=== PATIENT | female | born 1955 | race Caucasian/White ===

== ENCOUNTER 2018-06-23 09:50 | Outpatient (CLI) | payer OTHER ==
--- NOTE | 2018-06-23 13:10 | XRAY Report ---
Reason: CERVICAL DISORDER W/RADICULOPATHY/SCREENING FOR OS Procedure Date: 06/23/2018 Accession Number: [id number] / [id number] Procedure: XR - Cervical Spine 2 View CPT Code: FULL RESULT: EXAM: CERVICAL SPINE RADIOGRAPHY EXAM DATE: 06/23/2018 10:53 AM. CLINICAL HISTORY: Cervical disorder with radiculopathy/screening for osteoarthrosis. COMPARISONS: None. TECHNIQUE: 3 views. FINDINGS: Alignment: Normal. No spondylolisthesis or scoliosis. Bones: The cervical vertebral bodies and posterior elements are well visualized from the skull base through C6-C7. No fractures or bone lesions. Disks: Mild multilevel degenerative disk disease, which is most pronounced at C6-C7. Facets: Mild multilevel facet sclerosis. Soft Tissues: Normal. No prevertebral soft tissue swelling. The visualized lung apices are clear. IMPRESSION: Mild degenerative changes. RADIA
== END 2018-06-23 09:51 | disposition home or self-care (01) ==
LOC: DI 09:50
PROVIDERS: ATTEND Internal Medicine
DX: M50.31 Other cervical disc degeneration, high cervical region (principal); M47.9 Spondylosis, unspecified
CPT/HCPCS: 72040

== ENCOUNTER 2018-07-26 14:30 | Outpatient (CLI) | payer OTHER ==
--- NOTE | 2018-07-28 09:17 | Mammography Report ---
Reason: SCREENING MAMMO Procedure Date: 07/26/2018 Accession Number: [id number] / [id number] Procedure: CHRYSTAL - Screening Mammo w/Shane CPT Code: FULL RESULT: EXAM: Screening Mammo w/Shane DATE: 07/26/2018 3:51 PM CLINICAL HISTORY: Screening encounter. History of nulliparity. TECHNIQUE: (B) - Bilateral CC, laterally exaggerated CC, MLO views were obtained. COMPARISON: None PARENCHYMAL PATTERN: (D) - The breast(s) demonstrate(s) heterogeneously dense fibroglandular parenchyma. FINDINGS: Asymmetrically prominent focal asymmetry in the left axillary tail demonstrates a fine appearing grouping of calcifications, 3-D MLO image 16, 8.9 cm from the nipple. This finding requires additional spot magnification views as well as possibly ultrasound for clarification. A scar is noted on the right breast. There are no suspicious masses, calcifications, or areas of distortion in the right breast. IMPRESSION: Incomplete examination. BI-RADS category 0. RECOMMENDATION: (ADDMU) - Additional views using both Mammography and Ultrasound recommended. Left breast spot magnification views and possibly ultrasound. BI-RADS CATEGORY: (0) - Incomplete Examination - need additional evaluation. STANDARD QUALIFYING STATEMENTS: 1. This examination was not reviewed with the aid of Computer-Aided Detection (CAD). 2. A negative or benign imaging report should not preclude biopsy if clinically suspicious findings are present. 3. Dense breasts may obscure an underlying neoplasm. 4. This examination was reviewed with the aid of 3D breast imaging (tomosynthesis).
== END 2018-07-26 23:59 | disposition home or self-care (01) ==
LOC: DI 14:30
PROVIDERS: ATTEND Internal Medicine
DX: Z12.31 Encounter for screening mammogram for malignant neoplasm of breast (principal); R92.1 Mammographic calcification found on diagnostic imaging of breast
CPT/HCPCS: 77063; 77067

== ENCOUNTER 2018-07-26 14:44 | Outpatient (CLI) | payer OTHER ==
--- NOTE | 2018-07-27 08:09 | DEXA Report ---
Reason: SCREENING FOR OSTEOPOROSIS Procedure Date: 07/26/2018 Accession Number: [id number] / [id number] Procedure: DEX - Dexa Spine and/or Hip CPT Code: FULL RESULT: EXAM: Dexa Spine and/or Hip DATE: 07/26/2018 3:26 PM CLINICAL HISTORY: SCREENING FOR OSTEOPOROSIS TECHNIQUE: Dual energy x-ray absorptiometry (DXA) was performed on a silkfred System. Regions measured are the AP Spine, femoral neck, and if needed forearm. COMPARISON: None. In accordance with the International Society for Clinical Densitometry (ISCD) guidelines, data from previous exams may be reanalyzed using current recommendations and techniques. This is done to allow a more accurate basis for comparison with the current study. FINDINGS: The data for the lumbar spine is as follows: BMD (g/cm/cm) T-SCORE Z-SCORE REGION L1 0.890 -2.0 -0.6 L2 0.915 -2.4 -0.9 L3 1.092 -0.9 0.5 L4 1.021 -1.5 -0.1 TOTAL 0.985 -1.6 -0.2 NOTE: All evaluable vertebrae are used for classification The data for the hip is as follows: BMD (g/cm/cm) T-SCORE Z-SCORE REGION Neck 0.900 -1.0 0.4 TOTAL 0.940 -0.5 0.6 NOTE: The femoral neck or total proximal femur, whichever is lowest, is used for classification. IMPRESSION: THE WHO CLASSIFICATION BASED ON THE INTERNATIONAL REFERENCE STANDARD IS OSTEOPENIA. THE FRACTURE RISK IS INCREASED. RECOMMENDATION: Patients with diagnosis of osteoporosis or osteopenia should have regular bone mineral density assessment. For those eligible for Medicare, routine testing is allowed once every 2 years. Testing frequency can be increased for patients who have rapidly progressing disease or for those who are receiving medical therapy to restore bone mass. COMMENT: World Health Organization (WHO) definitions for osteoporosis and osteopenia: NORMAL BMD: T-score at -1.0 or higher, fracture risk is low OSTEOPENIA BMD: T-score between -1.0 and -2.5, fracture risk is increased. OSTEOPOROSIS BMD: T-score at -2.5 or lower, fracture risk is high. National Osteoporosis Foundation recommends: 1. Obtain adequate dietary calcium (at least 1200 mg per day) and vitamin D (400-800 international units per day). 2. Participate, as appropriate, in regular weightbearing and muscle-strengthening exercise. 3. Avoid tobacco use and reduce alcohol and caffeine intake. 4. For more detailed information see the website at www.NOF.org.
== END 2018-07-26 14:45 | disposition home or self-care (01) ==
LOC: DI 14:44
PROVIDERS: ATTEND Internal Medicine
DX: Z13.820 Encounter for screening for osteoporosis (principal); M85.89 Other specified disorders of bone density and structure, multiple sites
CPT/HCPCS: 77080

== ENCOUNTER 2018-08-08 09:45 | Outpatient (CLI) | payer OTHER ==
--- NOTE | 2018-08-08 13:48 | Mammography Report ---
Reason: ABNORMAL MAMMOGRAM Procedure Date: 08/08/2018 Accession Number: [id number] / [id number] Procedure: CHRYSTAL - Diag Special Views Dig LT CPT Code: FULL RESULT: EXAM: Diag Special Views Dig LT DATE: 08/08/2018 9:58 AM CLINICAL HISTORY: Diagnostic mammogram. The patient is recalled from screening for a focal asymmetry in the left axillary tail with suspicion of calcifications. TECHNIQUE: (L) - Left left MLO, spot magnified ML and magnified CC images are obtained. COMPARISON: 07/26/2018. PARENCHYMAL PATTERN: (D) - The breast(s) demonstrate(s) heterogeneously dense fibroglandular parenchyma. FINDINGS: The prominent tissue in the axillary tail shows no suspicious calcification on spot magnification views. There are no suspicious masses, calcifications, or areas of distortion. IMPRESSION: Negative examination. BI-RADS category 1. RECOMMENDATION: (ANNUAL) - Recommend routine annual screening mammography. BI-RADS CATEGORY: (1) - Negative. STANDARD QUALIFYING STATEMENTS: 1. This examination was not reviewed with the aid of Computer-Aided Detection (CAD). 2. A negative or benign imaging report should not preclude biopsy if clinically suspicious findings are present. 3. Dense breasts may obscure an underlying neoplasm. 4. This examination was reviewed with the aid of 3D breast imaging (tomosynthesis).
== END 2018-08-08 09:46 | disposition home or self-care (01) ==
LOC: DI 09:45
PROVIDERS: ATTEND Internal Medicine
DX: R92.8 Other abnormal and inconclusive findings on diagnostic imaging of breast (principal)

== ENCOUNTER 2018-08-17 10:52 | Outpatient (CLI) | payer OTHER ==
--- NOTE | 2018-08-17 15:41 | XRAY Report ---
Reason: RIGHT WRIST PAIN Procedure Date: 08/17/2018 Accession Number: [id number] / [id number] Procedure: XR - Wrist 3 View RT CPT Code: FULL RESULT: EXAM: RIGHT WRIST RADIOGRAPHY EXAM DATE: 08/17/2018 12:19 PM. CLINICAL HISTORY: Right wrist pain. COMPARISON: HAND 3 VIEW RT 08/17/2018 12:37 PM. TECHNIQUE: 3 views. FINDINGS: Bones: No fracture or bone lesion. Joints: No malalignment evident. Joint space loss and small osteophytes developing about the first CMC, STT and hamate-fifth metacarpal joint. There is also mild osteoarthritis at the first MCP joint. Soft Tissues: Normal. No soft tissue swelling. IMPRESSION: 1. Mild osteoarthritis about the wrist similar to prior exam. 2. No fracture or bone lesion. RADIA
--- NOTE | 2018-08-17 15:43 | XRAY Report ---
Reason: PAIN IN RIGHT WRIST, RT HAND Procedure Date: 08/17/2018 Accession Number: [id number] / [id number] Procedure: XR - Hand 3 View RT CPT Code: FULL RESULT: EXAM: RIGHT HAND RADIOGRAPHY EXAM DATE: 08/17/2018 12:19 PM. CLINICAL HISTORY: Right hand and wrist pain. COMPARISON: None. TECHNIQUE: 3 views. FINDINGS: Bones: Normal. No fractures or bone lesions. Joints: No malalignment evident. Mild to moderate osteoarthritis present about the first IP and fifth DIP joints and more mild disease throughout the remainder of the DIP joints, first MCP joint, base of thumb and medial carpal metacarpal joint. Soft Tissues: A radiodense soft tissue focus is present about the dorsal lateral third digit adjacent to the tuft measuring 5 mm. IMPRESSION: 1. 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 2. Calcific density within the dorsal lateral soft tissues adjacent to the third tuft. RADIA
== END 2018-08-17 10:53 | disposition home or self-care (01) ==
LOC: DI 10:52
PROVIDERS: ATTEND Nurse Practitioner Family
DX: M19.031 Primary osteoarthritis, right wrist (principal); M19.041 Primary osteoarthritis, right hand; M18.11 Unilateral primary osteoarthritis of first carpometacarpal joint, right hand

== ENCOUNTER 2018-10-23 10:34 | Outpatient (CLI) | payer OTHER ==
[2018-10-23 11:18] VITALS: BP 106/66
--- NOTE | 2018-10-23 11:18 | CONSULTATION NOTE ---
Information from patient questionnaire entered by Lakesha Goodwin. I have reviewed and concur with the information entered by Lakesha Goodwin. This document represents the service I personally performed and the decisions made by me, Pati Mclean MD, [facility]. - History of Present Illness Chief Complaint: Unrefreshed sleep, Snoring, Observed pauses in breathing, Fatigue The patient tells me that she normally goes to bed around 10:30 pm, and it takes her approximately 10-15 minutes to fall asleep. She has been told that she snores loudly and irregularly at night. She has been observed to stop breathing in her sleep. Her bed partner can still sleep in the same bed but she wears earplugs. She can recall waking up on the average of 3-4 times during the night. Most of the time she wakes up because of using the bathroom, choking, gasping for air and pain. There is not a lot of tossing and turning in her sl eep. Generally she can recall having dreams. She usually wakes up at 9:00 am and does not feel refreshed. She usually does not have a morning headache. During the day she complains of feeling sleepy and fatigued. She has fallen asleep while driving and has gone out of the vicky, no accident. She occasionally naps during the day. If she naps, upon falling asleep during the day she admits to having dreams. She reports having impaired concentration during the day. She reports having sleep paralysis. No symptoms of restless leg syndrome. 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 Patient has Domestic Partner and lives in . Smoked in the past 12 months: No Alcohol use: Yes Amount and frequency: 2 drinks a day Caffeine use: Yes - Family History Family history of sleep disordered breathing: Yes Family Hx Sleep Apnea: Father: Snoring - Review of Systems Weight gain over past 5 years: 5 Psychiatric: reports: Attention Deficit Hyperactivity, depression Ear/Nose/Throat: reports: nasal congestion, injury to nose, tonsillectomy Musculoskeletal: reports: joint pain, neck pain, back pain - Physical Examination Blood Pressure: 106/66 Heart Rate: 67 O2 Saturation: 98 Height: 5 ft 4.25 in Weight (kg): 63.321 kg Body Mass Index: 23.8 BMI Classification: Healthy weight Neck circumference: 12.5 HEENT: No craniofacial malformation Nostrils: patent to airflow Turbinates: normal Septum: deviated right Mouth and throat: narrow oropharynx (Mallampati Class II) Soft palate: long Hard palate: normal Uvula: normal Tongue: normal in size Tonsils: small Chin and jaw: Retrognathia Neck: normal w/o lymphadenopathy or thyromegaly Heart: regular rate and rhythm Lungs: clear bilaterally Abdomen: soft, non-tender Extremities: no edema or clubbing Neurologic: intact, no focal deficits - Impression 1. Suspected Obstructive Sleep Apnea-Hypopnea Syndrome, as suggested by a history of loud and irregular snoring, observed cessation of breath while asleep, gasping or choking in sleep, morning headache, frequent awakening during the night, unrefreshed sleep, cognitive impairment, and excessive daytime sleepiness. Narrow oropharynx is a common predisposing factor for obstructive sleep apnea-hypopnea syndrome. I recommend proceeding to polysomnography to confirm the diagnosis and to assess severity. If the patient has significant sleep disordered breathing, a manual CPAP titration study will also be performed to find the optimal treatment pressure. I informed the patient of what the sleep studies involve and after some discussion, obtained agreement to proceed. The pathophysiology of obstructive sleep apnea-hypopnea syndrome was discussed with the patient and health risks of cardiovascular and cerebrovascular disease if not treated. Risks of drowsy driving discussed in detail and patient advised to avoid long distance driving and to mold puller at the first sign of drowsiness. Patient agreed to plan. - Plan Schedule polysomnography and return in 1-2 weeks after the study to discuss result and initiate therapy. Avoid long distance driving or driving when feeling sleepy. Avoid alcohol, sedative and muscle relaxant around bedtime. Review instructions provided by trained office staff on how to prepare for the sleep study. Return for follow-up after sleep study completed. I spent 100% of this minute visit face to face with the patient with greater than 50% of this was spent time counseling the patient and coordination of care.
== END 2018-10-23 10:35 | disposition home or self-care (01) ==
LOC: SC 10:34
PROVIDERS: ATTEND Internal Medicine Pulmonary Disease
DX: G47.10 Hypersomnia, unspecified (principal); R06.81 Apnea, not elsewhere classified; R06.83 Snoring; R51 Headache; G47.8 Other sleep disorders; R41.89 Other symptoms and signs involving cognitive functions and awareness
CPT/HCPCS: 99203; 99212

== ENCOUNTER 2018-11-05 19:33 | Outpatient (CLI) | payer OTHER | END 2018-11-05 19:34 | disposition home or self-care (01) | LOC: SC 19:33 | PROVIDERS: ATTEND Internal Medicine Pulmonary Disease | DX: G47.33 Obstructive sleep apnea (adult) (pediatric) (principal); G47.61 Periodic limb movement disorder | CPT/HCPCS: 95810 ==

== ENCOUNTER 2018-12-20 11:19 | Outpatient (CLI) | payer OTHER ==
[2018-12-20 12:26] VITALS: BP 100/60
--- NOTE | 2018-12-20 12:26 | SLEEP CARE CONSULTATION ---
Information from patient questionnaire entered by Lakesha Goodwin. I have reviewed and concur with the information entered by Lakesha Goodwin. This document represents the service I personally performed and the decisions made by me, Leigh Soto RN, MSN, DENTAL PRACTITIONER. History of Present Illness Initial Mckinney Sleepiness Scale score: 6 Current Mckinney Sleepiness Scale score: 11 Additional HPI information: NINA BARNHART returns for follow up of the recently performed polysomnography and was informed of the polysomnography findings. I explained the pathophysiology behind obstructive sleep apnea. We then spent quite a bit of time discussing different treatment options. For mild obstructive sleep apnea, surgery and oral appliance are alternatives to nasal CPAP therapy but in moderate or severe cases, nasal CPAP is the most effective and reliable treatment. I reviewed the impact of weight changes on sleep apnea. Patient is at normal weight. After some discussion, the patient opted to consider her treatment options and contact this office in about a month. Patient counseled not drink alcohol less than 4 hours before bedtime as it can increase snoring and apnea. Patient was cautioned about risks of drowsy driving until sleepiness symptoms resolve. Patient denies drowsy driving. [facility] patient education on snoring and sleep apnea given and reviewed Sleep Study - Polysomnography Polysomnography findings: The quality of the study is good. The patient had normal sleep efficiency. The sleep architecture was abnormal for sleep fragmentation and reduced amount of time spent in REM sleep. Respiratory monitoring showed mild obstructive sleep apnea-hypopnea (AHI = 5.1) associated with frequent arousals, oxyhemoglobin desaturation and mild hypoxia (christiano oxygen saturation of 87%). The respiratory events occurred independently of sleep stage and body position (supine AHI = 5.6; non-supine = 4.70). Snore was loud in intensity. There was moderate periodic leg movement of sleep contributing to the sleep fragmentation. Cardiac rhythm was normal sinus rhythm without significant arrhythmia. No abnormal behavior (parasomnia) observed during the night. Allergies and Home Medications Known drug allergies: No Home medication list reviewed: Yes Allergy and home medication list: aspirin 1 tab daily venlafaxine ER 1 tab daily Review of Systems Review of systems same as previous: Yes Physical Exam Blood Pressure: 100/60 Cuff size: regular Heart Rate: 58 O2 Saturation: 98 Height: 5 ft 4.25 in Weight (kg): 136 lb 9.6 oz Body Mass Index: 23.2 BMI Classification: Healthy weight Impression and Plan 1. Obstructive Sleep Apnea-Hypopnea Syndrome, mild , with lowest oxygen saturation of 87%. Possibly this is the cause of the patients symptoms of unrefreshed sleep, and excessive daytime sleepiness. Positive pressure therapy could benefit her depression. As mentioned above, the patient will contact this office with her choice of treatment within a month. She is considering an o ral appliance. NonPAP AASM pamphlet given and reviewed. A list of accredited dentists given for reference. Patient advised to contact insurance to see what her plan covers for apnea treatment. If she chooses not to treat her apnea, she is advised to consider an ENT evaluation for further evaluation of snoring. 2. Periodic limb movement, moderate, that did fragment patients sleep. Periodic limb movement of sleep (PLMS) is characterized by episodes of repetitive limb movements that occur during sleep and usually involve the lower limbs. The etiology is unknown but can be associated with restless leg syndrome (RLS), neuropathy, spinal cord diseases, kidney disease, rheumatological disorders, narcolepsy, obstructive sleep apnea, and REM sleep behavior disorder. Other factors that can increase PLMS and/or RLS are heredity and iron deficiency as reflected by a low serum ferritin level below 50 to 75mcg / L. Several medications can precipitate or aggravate PLMS such as selective serotonin re- uptake inhibitor antidepressants, tricyclic antidepressants, lithium, and dopamine receptor antagonists with the exception of bupropion. Caffeine can also aggravate PLMS and should be avoided. Sleep hygiene methods can also improve sleep as well as lifestyle changes such as regular exercise. Patient was advised that further evaluation is indicated such as further evaluation of back and neck pain and to rule out iron deficiency. Lastly, her antidepressant could be considered to change to bupropion. * Contact this office with choice of treatment. * Avoid alcohol consumption near bedtime. * Consider ENT evaluation to rule out cause of snoring if does not treat apnea. * The patient is again cautioned about driving until sleepiness completely resolves. * Implement treatment choice and follow up as indicated. I spent 100% of this 30 minute visit face to face with the patient with greater than 50% of this was spent time counseling the patient and coordination of care.
== END 2018-12-20 11:20 | disposition home or self-care (01) ==
LOC: SC 11:19
PROVIDERS: ATTEND Nurse Practitioner Family
DX: G47.33 Obstructive sleep apnea (adult) (pediatric) (principal); G47.61 Periodic limb movement disorder
CPT/HCPCS: 99212; 99214

== ENCOUNTER 2019-03-27 08:33 | Outpatient (CLI) | payer OTHER ==
[~2019-03-27 08:33] MED LIST: GADOBUTROL 10 MMOL/10 ML VIAL ONE
[2019-03-27] MEDS: GADOBUTROL 10 MMOL/10 ML VIAL IVP ONE (09:49)
--- NOTE | 2019-03-27 12:52 | MRI Report ---
Reason: DIZZINESS Procedure Date: 03/27/2019 Accession Number: [id number] / [id number] Procedure: MRI - Brain W/WO CPT Code: Final Report FULL RESULT: EXAM: MRI BRAIN AND INTERNAL AUDITORY CANAL (IAC),WITHOUT AND WITH CONTRAST. EXAM DATE: 03/27/2019. CLINICAL HISTORY: DIZZINESS. COMPARISON: None. TECHNIQUE: Multiplanar, multisequence T1-weighted and fluid-sensitive MRI sequences of the brain and IACs were performed before and after administration of intravenous contrast. Other: None. IV Contrast: 7 mL Gadavist. FINDINGS: Brain Volume: Normal for age. Parenchyma/Dura: No acute hemorrhage, mass, or acute infarct.There are several puncture foci of increased T2 signal involving white matter of the cerebral hemispheres. There are patchy areas of increased T2 signal involving the natalya bilaterally. No abnormal enhancement. Internal Auditory Canals (IACs): Normal. No cranial nerve lesion or inflammatory process identified. The inner ear structure are symmetric and unremarkable. Ventricles/Cisterns: No hydrocephalus. No abnormal extra-axial fluid collection or hemorrhage. Orbits: Symmetric and unremarkable. Sella Turcica: Unremarkable. Vasculature: Normal signal flow void is seen in the major arterial structures at the skull base. The dural sinuses are patent and enhance normally. Sinuses: No acute sinus disease. Bones: No focal pathologic appearing marrow signal changes. Other: None. IMPRESSION: 1. No evidence of mass, infarct, or other acute abnormality. 2. Mild microvascular white matter disease. 3. No evidence of IAC mass. RADIA
== END 2019-03-27 08:34 | disposition home or self-care (01) ==
LOC: DI 08:33
PROVIDERS: ATTEND Registered Nurse
DX: R42 Dizziness and giddiness (principal)
CPT/HCPCS: 70553; A9585

== ENCOUNTER 2019-08-02 13:45 | Outpatient (CLI) | payer OTHER ==
--- NOTE | 2019-08-02 11:29 | SLEEP CARE CONSULTATION ---
Information from patient questionnaire entered by Diana Cabrales. I have reviewed and concur with the information entered by Diana Cabrales. This document represents the service I personally performed and the decisions made by me, Leigh Soto, RN, MSN, DRAGLINE OPERATOR HELPER. History of Present Illness Service Date and Time: 08/02/2019 1345 Previous diagnosis: Mild, Obstructive Sleep Apnea-Hypopnea Syndrome AHI: 5.1 Reason for follow up: first compliance Equipment type: CPAP Equipment obtained from: [employer] Mask style: Nasal pillows Backup mask available: Yes (nasal mask - switching when nasal pillows) Last cushion change: none since set up Type of Sleep Study: Polysomnography CPAP Compliance Data - Data Reviewed with Patient Average duration of nightly device use: 7h 57m Compliance rate %: 90 Current pressure setting (cmH2O): 4-15 Average residual AHI: 2.9 (6.7cm mean/ 9.5 cm/95th ) Subjective Patient concerns: reports: mask discomfort (nasal pillow causes irritation after a couple days of use ), condensation in mask/hose (initially but was resolved with new machine), other (vent of nasal mask is loud as hits covers). denies: aerophagia, air blowing in eyes, mask leak noise, nasal congestion, dry mouth, nose, throat, epistaxis Observed to snore while using device: No Current pressure setting perceived as: comfortable On therapy, patient: reports: sleeping better (waking up less in sleep), awakening more refreshed, being more awake and alert during the day, more rested overall (with more energy ), other (in general she feels happier ). denies: drowsiness while driving Initial Anabel Sleepiness Scale score: 6 Current Anabel Sleepiness Scale score: 6 Allergies and Home Medications Home medication list reviewed: No (no changes stated) Review of Systems Review of systems same as previous: Yes Physical Exam Height: 5 ft 4.25 in Weight: 138 lb (home weight) Body Mass Index: 23.5 BMI Classification: Healthy weight Impression and Plan 1. Obstructive Sleep Apnea-Hypopnea Syndrome,mild, with good treatment compliance and good apnea control. On CPAP therapy, the patient has better sleep quality and is more rested overall. I will change her autoCPAP range to usual pressure used of [id number]. She is advised to contact this office if pressure change uncomfortable. Goals of CPAP pressure discussed. To reduce nasal pillows mask irritation, I advised to try a different size. She is to contact [employer] if any further mask concerns and to notify of mask choice so replacements of cushions can be sent. She is advised to change mask cushions and filters re gularly as well as keep equipment cleaned with rationale discussed. Patient's apnea severity and rationale for treatment to reduce apnea, improve sleep quality and reduce cardiovascular and cerebrovascular events was reviewed. I also reviewed the benefit of consistent device use of CPAP for her depression/anxiety. She has felt overall more happy since use of CPAP and very pleased with benefit of CPAP treatment overall. * Change CPAP pressure to 6-10 cmH2O * Try new mask pillow size * Notify Jaime of mask cushion * Notify me if snoring with mask or feeling that the pressure is too much or too little * Attempt to lose weight * Call this office if any problems using CPAP * Return for follow up in 3 months, or sooner if concerns arise Visit Type: Telehealth Phone (to minimize the risk of COVID -19 exposure, the patient has agreed to telehealth visit and to have insurance billed.) Location of Provider: Home Patient agrees and consents to this telehealth visit type: Yes Time Spent with Patient (minutes): 20 Provider Statement: I spent 100% of the Telehealth Phone Call with the patient with greater than 50% spent counseling the patient and coordination of care.
== END 2019-08-02 13:46 | disposition home or self-care (01) ==
LOC: SC 13:45
PROVIDERS: ATTEND Nurse Practitioner Family
DX: G47.33 Obstructive sleep apnea (adult) (pediatric) (principal)

== ENCOUNTER 2020-06-12 10:18 | Outpatient (CLI) | payer OTHER ==
--- NOTE | 2020-06-12 10:41 | SLEEP CARE CONSULTATION ---
Information from patient questionnaire entered by Lakesha Goodwin. I have reviewed and concur with the information entered by Lakesha Goodwin. This document represents the service I personally performed and the decisions made by , Monika Felix ARNP. History of Present Illness Service Date and Time: 06/12/2020 1020 Previous diagnosis: Mild, Obstructive Sleep Apnea-Hypopnea Syndrome AHI: 5.1 (in 2019) Reason for follow up: other (10 month, pressure issues) Equipment type: CPAP Equipment obtained from: [employer] (getting supplies as needed) Mask style: Nasal (over the nose) Backup mask available: Yes (old mask/ other mask) Last cushion change: never replaced, 1 year Prior sleep studies: Yes Year and Where: 2019 - [facility] sleep Type of Sleep Study: Polysomnography HPI additional information: NINA BARNHART was diagnosed to have mild, AHI 5.1, obstructive sleep apnea- hypopnea syndrome and returns via Telehealth visit today for CPAP therapy 10 month with need to decrease pressure follow-up. CPAP Compliance Data - Data Reviewed with Patient Average duration of nightly device use: 7 hr 50 min Compliance rate %: 53 (180 days) Current pressure setting (cmH2O): 4-15 Humidity settin Average residual AHI: 2.1 Subjective Patient concerns: reports: condensation in mask/hose, dry mouth, nose, throat (waking up with dry mouth because her mouth is coming open during the night), other (waking up with mouth). denies: aerophagia, mask discomfort, air blowing in eyes, mask leak noise, nasal congestion, epistaxis Observed to snore while using device: No Current pressure setting perceived as: comfortable On therapy, patient: reports: sleeping better, awakening more refreshed, being more awake and alert during the day, more rested overall. denies: drowsiness while driving Initial [place] Sleepiness Scale score: 6 (in 2019) Current [place] Sleepiness Scale score: 4 Allergies and Home Medications Home medication list reviewed: Yes (no new medications) Review of Systems Review of systems same as previous: Yes (no changes) Physical Exam Vital signs obtained and entered by: Telehealth visit to reduce exposure during Covid pandemic Height: 5 ft 4.25 in Impression and Plan 1. Obstructive Sleep Apnea-Hypopnea Syndrome, mild, with poor treatment compliance and good apnea control. On CPAP therapy, the patient has better sleep quality and is more rested overall. Patient has been having trouble with waking up in middle of night with her mouth open and very dry. It is disturbing her and she was thinking we needed to adjust her pressure down. I talked to her about obtaining and using a chin strap. This will help to keep her mouth closed with her nasal mask in place and reduce the oral dryness. She has also had some condensation in her mask but states it has been getting better. Condensation in the mask or hose can be reduced by increasing the heated hose setting and oral dryness can be reduced by adjusting humidity setting higher or heated hose lower or by adjusting both settings. Verbal instructions given on how to change humidity and heated hose settings with rationale explaining why to change. Patient has not changed out her mask for the last year. I advised her to change her mask regularly (usually monthly) as well as washing the mask daily to improve mask seal and comfort. I also advised her to increase her use of the CPAP to bring her compliance up and reviewed compliance outlines with her for her insurance to continue to cover supplies. Patient voiced understanding and agreement to plan. Patient's apnea severity and rationale for treatment to reduce apnea, improve sleep quality and reduce cardiovascular and cerebrovascular events was reviewed. I also reviewed the benefit of consistent device use of CPAP for depression/anxiety. * Continue auto CPAP pressure at 4-15 cmH2O * Obtain and try chin strap to keep mouth closed * Increase CPAP use to increase compliance * Notify me if snoring with mask or feeling that the pressure is too much or too little * Call this office if any problems using CPAP * Return for follow up in 1-2 months to recheck compliance, or sooner if concerns arise Counseling Topics: Spare mask Visit Type: Telehealth Video Video Type: VSee Patient Location: Home Location of Provider: Office Patient agrees and consents to this telehealth visit type: Yes Patient agrees to have their insurance billed: Yes Time Spent with Patient (minutes): 18 Provider Statement: I spent 100% of the Telehealth Video Call with the patient with greater than 50% spent counseling the patient and coordination of care.
== END 2020-06-12 10:19 | disposition home or self-care (01) ==
LOC: SC 10:18
PROVIDERS: ATTEND Nurse Practitioner Family
DX: G47.33 Obstructive sleep apnea (adult) (pediatric) (principal)

== ENCOUNTER 2020-06-17 09:00 | Outpatient (CLI) | payer OTHER ==
--- NOTE | 2020-06-23 14:10 | Mammography Report ---
BILATERAL DIGITAL SCREENING MAMMOGRAM 3D/2D: 06/17/2020 CLINICAL: Routine screening. Comparison is made to exams dated: 07/26/2018 mammogram and 08/08/2018 mammogram - [facility]. The tissue of both breasts is heterogeneously dense. This may lower the sensitivity of ma mmography. No significant masses, calcifications, or other findings are seen in either breast. There has been no significant interval change. IMPRESSION: NEGATIVE There is no mammographic evidence of malignancy. A 1 year screening mammogram is recommended. This exam was interpreted at Station ID: [id number]. NOTE: For mammograms, a report in lay terms will be sent to the patient. Approximately 15% of breast malignancies will not be visualized mammographically. In the management of a palpable breast mass, a negative mammogram must not discourage biopsy of a clinically suspicious lesion. Electronically Signed By: Dandre Cox M.D. aty/penrad:06/23/2020 11:05:25 ACR BI-RADS Category 1: Negative 3341F PARENCHYMAL PATTERN: (D) - The breast(s) demonstrate(s) heterogeneously dense fibroglandular parenchy ma. BI-RADS CATEGORY: (1) - 1 RECOMMENDATION: (ANNUAL) - Recommend routine annual screening mammography. [id number] 1 year screening LATERALITY: (B)
== END 2020-06-17 09:01 | disposition home or self-care (01) ==
LOC: DI.S 09:00
PROVIDERS: ATTEND Nurse Practitioner Family
DX: Z12.31 Encounter for screening mammogram for malignant neoplasm of breast (principal)

== ENCOUNTER 2020-07-18 11:31 | Outpatient (CLI) | payer OTHER ==
--- NOTE | 2020-07-18 11:45 | SLEEP CARE CONSULTATION ---
Information from patient questionnaire entered by Lakesha Goodwin. I have reviewed and concur with the information entered by Lakesha Goodwin. This document represents the service I personally performed and the decisions made by , Monika Felix ARNP. History of Present Illness Service Date and Time: 07/18/2020 1120 Previous diagnosis: Mild, Obstructive Sleep Apnea-Hypopnea Syndrome AHI: 5.1 (in 2019) Reason for follow up: one month Equipment type: CPAP Equipment obtained from: [employer] (getting supplies as needed) Mask style: Nasal (with chin strap) Backup mask available: Yes (old mask) Prior sleep studies: Yes Year and Where: 2019 - [facility] sleep Type of Sleep Study: Polysomnography HPI additional information: NINA BARNHART was diagnosed to have mild, AHI 5.1, obstructive sleep apnea- hypopnea syndrome and returns via Telehealth visit today for CPAP therapy one month follow-up. CPAP Compliance Data - Data Reviewed with Patient Average duration of nightly device use: 7 hr 58 min Compliance rate %: 70 Current pressure setting (cmH2O): 4-15 Humidity settin Average residual AHI: 2.4 Subjective Patient concerns: reports: mask discomfort, condensation in mask/hose, dry mouth, nose, throat (dry nose). denies: aerophagia, air blowing in eyes, mask leak noise, nasal congestion, epistaxis, other Observed to snore while using device: No Current pressure setting perceived as: too high On therapy, patient: reports: sleeping better, awakening more refreshed, being more awake and alert during the day, more rested overall. denies: drowsiness while driving Initial [place] Sleepiness Scale score: 6 (in 2019) Current [place] Sleepiness Scale score: 4 Allergies and Home Medications Home medication list reviewed: Yes (no changes) Review of Systems Review of systems same as previous: Yes (no changes) Physical Exam Vital signs obtained and entered by: Telehealth visit to reduce exposure during Covid pandemic Height: 5 ft 4.25 in Impression and Plan 1. Obstructive Sleep Apnea-Hypopnea Syndrome, mild, with fair treatment compliance and good apnea control. On CPAP therapy, the patient has better sleep quality and is more rested overall. She has felt that the pressure is set too high. I will adjust her pressure to 4-11 cmH2O to make it more comfortable and this should not decrease her apnea control. She has been having some nasal dryness since changing to the nasal cushion mask. Her humidity is at 5 and she gets some condensation. Nasal dryness can be reduced with increasing the CPAP humidity as shown on sample device and the heated hose can be increased if condensation. In addition, I advised the patient that a product called Jose Ease nasal cream can be used 4 times a day for 7-10 days and then as needed to help reduce nasal dryness. Patient's apnea severity and rationale for treatment to reduce apnea, improve sleep quality and reduce cardiovascular and cerebrovascular events was reviewed. I also reviewed the benefit of consistent device use of CPAP for depression/anxiety. * Change auto CPAP pressure to 4-11 cmH2O * Notify me if snoring with mask or feeling that the pressure is too much or too little * Maintain a healthy weight * Call this office if any problems using CPAP * Return for follow up in 3 months, or sooner if concerns arise Counseling Topics: Spare mask, Weight control Visit Type: Telehealth Video Video Type: VSee Patient Location: Home Location of Provider: Office Patient agrees and consents to this telehealth visit type: Yes Patient agrees to have their insurance billed: Yes Time Spent with Patient (minutes): 17 Provider Statement: I spent 100% of the Telehealth Video Call with the patient with greater than 50% spent counseling the patient and coordination of care.
== END 2020-07-18 11:32 | disposition home or self-care (01) ==
LOC: SC 11:31
PROVIDERS: ATTEND Nurse Practitioner Family
DX: G47.33 Obstructive sleep apnea (adult) (pediatric) (principal)

== ENCOUNTER 2021-08-05 08:54 | Outpatient (CLI) | payer MEDICARE, OTHER ==
--- NOTE | 2021-08-05 16:43 | Mammography Report ---
BILATERAL DIGITAL SCREENING MAMMOGRAM 3D/2D WITH EXAGGERATED CC: 08/05/2021 CLINICAL: Routine screening. Family history of breast cancer. Comparison is made to exams dated: 06/17/2020 mammogram, 08/08/2018 mammogram, and 07/26/2018 mammogram - [facility]. The tissue of both breasts is heterogeneously dense. This may lower the sensitivity of mammography. No significant masses, calcifications, or other findings are seen in either breast. There has been no significant interval change. IMPRESSION: NEGATIVE There is no mammographic evidence of malignancy. A 1 year screening mammogram is recommended. This exam was interpreted at Station ID: [id number]. NOTE: For mammograms, a report in lay terms will be sent to the patient. Approximately 15% of breast malignancies will not be visualized mammographically. In the management of a palpable breast mass, a negative mammogram must not discourage biopsy of a clinically suspicious lesion. Electronically Signed By: Dandre Cox M.D. aty/penrad:08/05/2021 11:03:29 ACR BI-RADS Category 1: Negative 3341F PARENCHYMAL PATTERN: (D) - The breast(s) demonstrate(s) heterogeneously dense fibroglandular zachary troy. BI-RADS CATEGORY: (1) - 1 RECOMMENDATION: (ANNUAL) - Recommend routine annual screening mammography. [id number] 1 year screening LATERALITY: (B)
== END 2021-08-05 08:55 | disposition home or self-care (01) ==
LOC: DI.S 08:54
PROVIDERS: ATTEND Nurse Practitioner Family
DX: Z12.31 Encounter for screening mammogram for malignant neoplasm of breast (principal); Z80.3 Family history of malignant neoplasm of breast

== ENCOUNTER 2022-08-23 09:04 | Outpatient (CLI) | payer MEDICARE ==
--- NOTE | 2022-08-23 16:29 | MRI Report ---
PROCEDURE: SHOULDER WO - RT INDICATIONS: BILATERAL SHOULDER PAIN TECHNIQUE: Noncontrast oblique coronal T2 fast spin echo with fat saturation, oblique sagittal T1 spin echo and T2 fast spin echo with fat saturation, axial T1 spin echo and T2 fast spin echo with fat saturation t hrough the shoulder. COMPARISON: None. FINDINGS: Image quality: Excellent. Rotator cuff: Moderate T2 signal elevation diffusely throughout the supraspinatus and infraspinatus t endons at the humeral insertion sites extending the muscular tendinous junctions, indicating tendinop athy. Superimposed moderate grade intrasubstance and bursal surface tearing of the mid/posterior supr aspinatus tendon at the humeral insertion site extending the muscular tendinous junction. Low-grade p artial-thickness bursal surface and intrasubstance tearing of the anterior, mid, and posterior infras pinatus tendon at the humeral insertion site. Moderate grade tearing of the subscapularis tendon at t he humeral insertion site. Bones and bursae: No bone marrow contusions or fractures. Mild glenohumeral and moderate acromioclav icular joint degeneration. The acromion demonstrates conventional anatomy, without an os acromiale. Moderate subacromial/subdeltoid bursal fluid is present. Capsule and soft tissues: In the absence of intra-articular contrast, the labrum and glenohumeral li gaments appear intact. The long head of the biceps tendon is dislocated medially. The rotator interv al appears normal, without fibrosis. The coracohumeral ligament is normal in thickness. IMPRESSION: 1. Supraspinatus and infraspinatus tendinopathy with superimposed partial thickness tears. 2. Partial-thickness tearing of the subscapularis tendon. 3. Biceps tendon dislocation. 4. Acromioclavicular joint osteoarthritis. 5. Subacromial bursitis. Reviewed by: Yaya Parekh MD on 08/23/2022 4:28 PM PDT Approved by: Yaya Parekh MD on 08/23/2022 4:28 PM PDT Station ID: [id number]
--- NOTE | 2022-08-23 16:29 | MRI Report ---
PROCEDURE: SHOULDER WO - LT INDICATIONS: BILATERAL SHOULDER PAIN TECHNIQUE: Noncontrast oblique coronal T2 fast spin echo with fat saturation, oblique sagittal T1 spin echo and T2 fast spin echo with fat saturation, axial T1 spin echo and T2 fast spin echo with fat saturation t hrough the shoulder. COMPARISON: None. FINDINGS: Image quality: Excellent. Rotator cuff: There is moderate T2 signal elevation throughout the supraspinatus and infraspinatus te ndons at the humeral insertion sites extending the muscular tendinous junctions, indicating tendinopa thy. There is superimposed high-grade intrasubstance tearing of the anterior super spinatus tendon at the humeral insertion site. Superimposed low-grade partial-thickness intrasubstance and articular lux rface tearing of the posterior supraspinatus, anterior and mid infraspinatus tendons at the humeral i nsertion sites extending the muscular tendinous junction. There is high-grade tearing of the superior aspect of the subscapularis tendon at the humeral insertion site extending the muscular tendinous ju nction. Teres minor is intact. No rotator cuff atrophy. Bones and bursae: No bone marrow contusions or fractures. Mild glenohumeral and moderate acromioclav icular joint degeneration. The acromion demonstrates conventional anatomy, without an os acromiale. Moderate subacromial/subdeltoid bursal fluid is present. Capsule and soft tissues: In the absence of intra-articular contrast, the labrum and glenohumeral li gaments appear intact. The long head of the biceps tendon is dislocated medially. The rotator interv al appears normal, without fibrosis. The coracohumeral ligament is normal in thickness. IMPRESSION: 1. Supraspinatus and infraspinatus tendinopathy with superimposed partial thickness tears. 2. High-grade tearing of the upper subscapularis tendon. 3. Acromioclavicular joint osteoarthritis. 4. Subacromial bursitis. 5. Biceps tendon dislocation. Reviewed by: Yaya Parekh MD on 08/23/2022 4:28 PM PDT Approved by: Yaya Parekh MD on 08/23/2022 4:28 PM PDT Station ID: [id number]
== END 2022-08-23 09:05 | disposition home or self-care (01) ==
LOC: DI 09:04
PROVIDERS: ATTEND Family Medicine
DX: M75.111 Incomplete rotator cuff tear or rupture of right shoulder, not specified as traumatic (principal); M19.011 Primary osteoarthritis, right shoulder; M75.51 Bursitis of right shoulder; M67.921 Unspecified disorder of synovium and tendon, right upper arm; M75.112 Incomplete rotator cuff tear or rupture of left shoulder, not specified as traumatic; M19.012 Primary osteoarthritis, left shoulder; M75.52 Bursitis of left shoulder; M67.922 Unspecified disorder of synovium and tendon, left upper arm

== ENCOUNTER 2023-11-16 08:57 | Outpatient (CLI) | payer MEDICARE ==
--- NOTE | 2023-11-17 08:58 | Mammography Report ---
BILATERAL DIGITAL SCREENING MAMMOGRAM 3D/2D: 11/16/2023 CLINICAL: Routine screening. Family history of breast cancer. Comparison is made to exams dated: 08/05/2021 mammogram, 06/17/2020 mammogram, 08/08/2018 mammogram, and 07/26/2018 mammogram - [facility]. Both breasts are heterogeneously dense, which may obscure small masses (category c / 51-75% glandular tissue). No significant masses, calcifications, or other findings are seen in either breast. There has been no significant interval change. IMPRESSION: NEGATIVE There is no mammographic evidence of malignancy. A 1 year screening mammogram is recommended. Based on the Tyrer Cuzick model (a risk assessment model) the patient's lifetime risk is 17.1% and he r 10 year risk is 9.2%. According to the ACR, ACS, and NCCN guidelines, an annual breast MRI exam romario ng with mammogram is recommended if the patient's lifetime risk is 20% or greater. This exam was interpreted at Station ID: [id number]. NOTE: For mammograms, a report in lay terms will be sent to the patient. Approximately 15% of breast malignancies will not be visualized mammographically. In the management of a palpable breast mass, a negative mammogram must not discourage biopsy of a clinically suspicious lesion. Electronically Signed By: Raul powell/fransisco:11/16/2023 11:09:29 letter sent: No_Letter ACR BI-RADS Category 1: Negative 3341F PARENCHYMAL PATTERN: (D) - The breast(s) demonstrate(s) heterogeneously dense fibroglandular zachary troy. BI-RADS CATEGORY: (1) - 1 RECOMMENDATION: (ANNUAL) - Recommend routine annual screening mammography. [id number] 1 year screening LATERALITY: (B)
== END 2023-11-16 08:58 | disposition home or self-care (01) ==
LOC: DI.S 08:57
DX: Z12.31 Encounter for screening mammogram for malignant neoplasm of breast (principal); R92.333 Mammographic heterogeneous density, bilateral breasts; Z80.3 Family history of malignant neoplasm of breast

== ENCOUNTER 2024-01-12 09:15 | Outpatient (CLI) | payer MEDICARE ==
--- NOTE | 2024-01-12 13:30 | XRAY Report ---
PROCEDURE: Knee 4+V LT INDICATIONS: LEFT KNEE PAIN TECHNIQUE: AP, lateral, and sunrise views of the left knee COMPARISON: None. FINDINGS: Mild tricompartmental osteoarthritis, most conspicuous in the lateral and patellofemoral compartments . Slight lateral subluxation of the patella relative to the trochlea. No fracture or dislocation. IMPRESSION: Mild tricompartmental osteoarthritis. Reviewed by: Samuel Flood MD on 01/12/2024 1:29 PM PDT Approved by: Samuel Flood MD on 01/12/2024 1:29 PM PDT Station ID: [id number]
== END 2024-01-12 09:16 | disposition home or self-care (01) ==
LOC: DI.S 09:15
DX: M17.12 Unilateral primary osteoarthritis, left knee (principal)